=== PATIENT | female | born 1990 | race Two or more races ===

== ENCOUNTER 2022-10-29 17:51 | Emergency (ER) | payer OTHER ==
[~2022-10-29] VITALS: Ht 154.9 cm; Wt 80.5 kg
[2022-10-29 19:03] VITALS: BP 121/72
[2022-10-29] MEDS ORDERED: IBU600T PO (19:27)
[2022-10-29] MEDS ORDERED: CEPH500T PO (19:27)
[2022-10-29] MEDS ORDERED: CEPHALEXIN 250 MG CAP PO ONE (19:30)
[2022-10-29] MEDS ORDERED: IBUPROFEN 800 MG TAB PO ONE (19:30)
== END 2022-10-29 20:09 | disposition home or self-care (01) ==
LOC: ER 17:51
DX: S02.5XXA Fracture of tooth (traumatic), initial encounter for closed fracture (principal); Z88.6 Allergy status to analgesic agent; X58.XXXA Exposure to other specified factors, initial encounter; Y93.89 Activity, other specified; Y92.89 Other specified places as the place of occurrence of the external cause; Y99.8 Other external cause status